=== PATIENT | male | born 1960 | race Caucasian/White ===

== ENCOUNTER → 2016-10-23 | Outpatient (CLI) | payer OTHER ==
[~2016-10-23] MED LIST: AMLODIPINE BESY10 MG PO; BACTRIM,SEPT1 TABLET PO; FLEXERIL10 MG PO; KEFLEX500 MG PO; LISINOPRIL; LO-DOSE ASPIRIN81 M1 PO; METFORMIN HCL1000 MG PO; MOBIC7.5 MG PO; MORPHINE SULFAT15 M1 PO; MOTRIN600 M1; NEURONTIN300 MG PO; NOHOMEMEDS; PERCOCET 5/31 TABLET PO; PERCOCET 7.51 TABLET PO; RELAFEN500 M1 PO; ZESTRIL40 MG PO
== END | disposition home or self-care (01) ==
LOC: OPR 08:49 → EDSTATUS 09:00 → OPR 09:00
PROC: 0FB03ZX Excision of Liver, Percutaneous Approach, Diagnostic (ICD-10-PCS; principal; 2016-10-23)
DX: B19.20 Unspecified viral hepatitis C without hepatic coma (principal); R16.0 Hepatomegaly, not elsewhere classified; F17.200 Nicotine dependence, unspecified, uncomplicated; Z78.9 Other specified health status; B18.2 Chronic viral hepatitis C
CPT/HCPCS: 77012; 88307; 88313; J3010

== ENCOUNTER 2018-02-21 05:35 | Day surgery (SDC) | payer OTHER ==
[~2018-02-21] VITALS: Ht 180.3 cm; Wt 97.5 kg
[~2018-02-21 05:35] MED LIST changes: +AMOXICILLIN500 M1 PO; +OXYCODONE HCL10 MG PO
[2018-02-21 06:05] VITALS: BP 149/76
[2018-02-21 11:45] VITALS: BP 144/80
[2018-02-21 12:30] VITALS: BP 166/77
== END 2018-02-21 12:45 | disposition home or self-care (01) ==
LOC: SDC
PROVIDERS: Family Medicine
PROC: 081X0J3 Bypass Right Lacrimal Duct to Nasal Cavity with Synthetic Substitute, Open Approach (ICD-10-PCS; principal; 2018-02-21)
DX: H04.551 Acquired stenosis of right nasolacrimal duct (principal); I10 Essential (primary) hypertension; E11.9 Type 2 diabetes mellitus without complications; Z79.84 Long term (current) use of oral hypoglycemic drugs; C22.0 Liver cell carcinoma; E83.52 Hypercalcemia; B18.2 Chronic viral hepatitis C; F17.200 Nicotine dependence, unspecified, uncomplicated; Z83.3 Family history of diabetes mellitus
CPT/HCPCS: 82948; 88305; J0690; J1100; J2250; J2405; J2710; J3010; J7643; S0020